=== PATIENT | male | born 1995 | race Caucasian/White ===

== ENCOUNTER 2019-10-05 12:58 | Inpatient (IN) | payer MEDICAID ==
[~2019-10-05] VITALS: Ht 166.4 cm; Wt 68.2 kg
[2019-10-05] MEDS ORDERED: ONDANSETRON HCL 4MG/2ML INJ IV STA (13:23)
[2019-10-05] MEDS ORDERED: MORPHINE SULFATE 4 MG/ML CPJ (NOT FOR IM USE) IV STA (13:23)
[2019-10-05] MEDS ORDERED: SODIUM CHLORIDE 0.9% 1000ML BAG (SEPSIS BOLUS) IV ONE (13:30)
[2019-10-05] MEDS ORDERED: LEVOFLOXACIN 750MG PREMIX 150 ML IV ONE (14:00)
[2019-10-05 14:09] LABS: CLARITY URINE CLEAR (CLEAR); COLOR URINE YELLOW (YELLOW); KETONES URINE NEGATIVE (NEGATIVE); LEUKOCYTE ESTERASE URINE 3+ (NEGATIVE); NITRITE URINE POSITIVE (NEGATIVE); OCCULT BLOOD URINE 1+ (NEGATIVE); PH URINE 7.5 (4.5-8.0); PROTEIN URINE NEGATIVE (NEGATIVE); SPECIFIC GRAVITY URINE 1.013 (1.005-1.030); UROBILINOGEN URINE 0.2 E.U./dL (0.2-1.0)
[2019-10-05 14:12] LABS: BASOPHILS % 0.3 % (0.0-2.0); EOSINOPHILS % 1.2 % (0.0-5.0); HEMATOCRIT. 44.4 % (42.0-52.0); HEMOGLOBIN. 14.6 g/dL (14.0-18.0); LYMPHOCYTES % 7.8 % (20.0-50.0); MEAN CORPUSCULAR HEMOGLOBIN 27.1 pg (28.0-32.0); MEAN CORPUSCULAR VOLUME 82.7 fL (80.0-94.0); MEAN PLATELET VOLUME 8.7 fl (7.4-10.4); MONOCYTES % 7.2 % (2.0-8.0); NEUTROPHILS % 83.5 % (40.0-76.0); PLATELET 263 x1000/uL (130-400); RED BLOOD CELL COUNT 5.38 mill/uL (4.7-6.1); RED CELL DISTRIBUTION WIDTH 15.6 % (11.6-14.6)
[2019-10-05 14:19] LABS: CHLORIDE 103 mEq/L (98-107); PROTHROMBIN TIME 9.9 sec (9.6-11.0)
[2019-10-05] MEDS ORDERED: HYDROCODONE/ACETAMINOPHEN 5/325MG TABLET PO PRN (17:30)
[2019-10-05] MEDS ORDERED: CLONIDINE 0.1MG TABLET PO PRN (17:30)
[2019-10-05] MEDS ORDERED: DOCUSATE SODIUM 100MG CAPSULE PO PRN (17:30)
[2019-10-05] MEDS ORDERED: IPRATROPIUM/ALBUTEROL 0.5-3(2.5)MG/3ML NEB NEB PRN (17:30)
[2019-10-05] MEDS ORDERED: MAGNESIUM/ALUMINUM HYDROXIDE/SIMETHICONE 30ML UDC PO PRN (17:30)
[2019-10-05] MEDS ORDERED: ACETAMINOPHEN 325MG TABLET PO PRN (17:30)
[2019-10-05] MEDS: SODIUM CHLORIDE 0.9% 1,000 ML IV SCH ×2 (17:30→22:53)
[2019-10-05] MEDS ORDERED: GUAIFENESIN 200MG/10ML SUGAR FREE UDC PO PRN (17:30)
[2019-10-05] MEDS ORDERED: ONDANSETRON HCL 4MG/2ML INJ IV PRN (17:30)
[2019-10-05] MEDS ORDERED: MORPHINE SULFATE 2 MG/ML CPJ (NOT FOR IM USE) IV PRN (17:30)
[2019-10-05 22:00] VITALS: BP 133/87
[2019-10-05] MEDS ORDERED: SERT50TA MT (22:09)
[2019-10-05] MEDS ORDERED: ALBU05 NEB ×2 (22:09)
[2019-10-05] MEDS ORDERED: ACET-2708 MT (22:09)
[2019-10-06] VITALS (13 sets, daily range): BP systolic 89–147; BP diastolic 55–94
[2019-10-06 06:18] LABS: BASOPHILS % 0.4 % (0.0-2.0); EOSINOPHILS % 3.4 % (0.0-5.0); HEMATOCRIT. 34.4 % (42.0-52.0); HEMOGLOBIN. 11.3 g/dL (14.0-18.0); LYMPHOCYTES % 18.5 % (20.0-50.0); MEAN CORPUSCULAR HEMOGLOBIN 27.3 pg (28.0-32.0); MEAN PLATELET VOLUME 9.3 fl (7.4-10.4); MONOCYTES % 8.1 % (2.0-8.0); NEUTROPHILS % 69.6 % (40.0-76.0); PLATELET 198 x1000/uL (130-400); RED BLOOD CELL COUNT 4.15 mill/uL (4.7-6.1); RED CELL DISTRIBUTION WIDTH 15.9 % (11.6-14.6)
[2019-10-06 06:30] LABS: CHLORIDE 107 mEq/L (98-107)
[2019-10-06] MEDS: ENOXAPARIN 40MG/0.4ML SYR SUBCUT SCH (09:21)
[2019-10-06] MEDS: FAMOTIDINE 20MG/2ML VIAL IV SCH (09:21)
[2019-10-06] MEDS: SODIUM CHLORIDE 0.9% 1,000 ML IV SCH (09:22)
[2019-10-06] MEDS ORDERED: LEVOFLOXACIN 500MG PREMIX 100 ML IV SCH (14:00)
[2019-10-06] MEDS: IPRATROPIUM/ALBUTEROL 0.5-3(2.5)MG/3ML NEB HHN SCH (20:06)
[2019-10-07] VITALS (12 sets, daily range): BP systolic 90–123; BP diastolic 60–81
[2019-10-07] MEDS: IPRATROPIUM/ALBUTEROL 0.5-3(2.5)MG/3ML NEB HHN SCH ×4 (02:08→20:34)
[2019-10-07 08:23] LABS: BG BASE EXCESS 2.5 mmol/L (-2.0-2.0); BG CARBOXYHEMOGLOBIN 0.3 % (0.5-1.5); BG DEOXYHEMOGLOBIN 0.8 % (0.0-5.0); BG FRACTION INSPIRED OXYGEN 35; BG HCO3 ACT 28.4 mmol/L (22.0-26.0); BG METHEMOGLOBIN 0.3 % (0.0-1.5); BG OXYGEN SATURATION 99.2 % (92.0-98.5); BG OXYHEMOGLOBIN 98.6 % (94.0-97.0); BG PCO2 49.4 mmHg (35.0-45.0); BG PH 7.377 (7.350-7.450); BG PO2 183.9 mmHg (75.0-100.0); BG SAMPLE SITE RIGHT RADIAL; BG TIDAL VOLUME(mL) 500 mL; BG TOTAL HEMOGLOBIN 11.6 g/dL (12.0-18.0); BG VENT MODE VENT - A/C; BG VENT RATE 12 set
[2019-10-07] MEDS: FAMOTIDINE 20MG/2ML VIAL IV SCH (08:56)
[2019-10-07] MEDS: ENOXAPARIN 40MG/0.4ML SYR SUBCUT SCH (08:56)
[2019-10-07] MEDS ORDERED: GENTAMICIN SULFATE 160 MG in SODIUM CHLORIDE 0.9% 100 ML IV SCH (13:00)
[2019-10-07] MEDS: SODIUM CHLORIDE 0.9% 1,000 ML IV SCH ×2 (13:59→23:35)
[2019-10-07] MEDS ORDERED: LEVOFLOXACIN 500MG PREMIX 100 ML IV SCH (14:00)
[2019-10-07] MEDS: GENTAMICIN 100MG PREMIX 50 ML IV SCH (23:35)
[2019-10-08] VITALS (12 sets, daily range): BP systolic 97–134; BP diastolic 72–88
[2019-10-08] MEDS: IPRATROPIUM/ALBUTEROL 0.5-3(2.5)MG/3ML NEB HHN SCH ×4 (02:04→21:00)
[2019-10-08] MEDS: GENTAMICIN 100MG PREMIX 50 ML IV SCH ×3 (05:25→21:13)
[2019-10-08 07:24] LABS: BASOPHILS % 0.4 % (0.0-2.0); EOSINOPHILS % 6.8 % (0.0-5.0); HEMATOCRIT. 33.4 % (42.0-52.0); HEMOGLOBIN. 11.1 g/dL (14.0-18.0); LYMPHOCYTES % 26.2 % (20.0-50.0); MEAN CORPUSCULAR HEMOGLOBIN 27.3 pg (28.0-32.0); MEAN PLATELET VOLUME 8.5 fl (7.4-10.4); MONOCYTES % 8.3 % (2.0-8.0); NEUTROPHILS % 58.3 % (40.0-76.0); PLATELET 188 x1000/uL (130-400); RED BLOOD CELL COUNT 4.07 mill/uL (4.7-6.1)
[2019-10-08 07:46] LABS: CHLORIDE 102 mEq/L (98-107)
[2019-10-08] MEDS: ENOXAPARIN 40MG/0.4ML SYR SUBCUT SCH (10:01)
[2019-10-08] MEDS: FAMOTIDINE 20MG/2ML VIAL IV SCH (10:01)
[2019-10-08] MEDS: SODIUM CHLORIDE 0.9% 1,000 ML IV SCH (12:41)
[2019-10-09] VITALS (12 sets, daily range): BP systolic 99–131; BP diastolic 62–85
[2019-10-09] MEDS: IPRATROPIUM/ALBUTEROL 0.5-3(2.5)MG/3ML NEB HHN SCH ×5 (00:30→19:55)
[2019-10-09] MEDS: SODIUM CHLORIDE 0.9% 1,000 ML IV SCH ×2 (04:23→15:04)
[2019-10-09] MEDS: GENTAMICIN 100MG PREMIX 50 ML IV SCH ×2 (05:46→18:18)
[2019-10-09] MEDS: ENOXAPARIN 40MG/0.4ML SYR SUBCUT SCH (08:30)
[2019-10-09] MEDS: FAMOTIDINE 20MG/2ML VIAL IV SCH (08:30)
[2019-10-10] VITALS (7 sets, daily range): BP systolic 98–131; BP diastolic 59–84
[2019-10-10] MEDS: IPRATROPIUM/ALBUTEROL 0.5-3(2.5)MG/3ML NEB HHN SCH ×3 (01:45→14:04)
[2019-10-10] MEDS: SODIUM CHLORIDE 0.9% 1,000 ML IV SCH (03:31)
[2019-10-10] MEDS: GENTAMICIN 100MG PREMIX 50 ML IV SCH (05:05)
[2019-10-10] MEDS: ENOXAPARIN 40MG/0.4ML SYR SUBCUT SCH (11:48)
[2019-10-10] MEDS: FAMOTIDINE 20MG/2ML VIAL IV SCH (11:48)
== END 2019-10-10 18:00 | disposition home or self-care (01) | DRG 720 ==
LOC: ER 12:58 → 5EST 15:21 → EDBEDREQTM 15:37 → ENRESERV 20:27
PROVIDERS: ADMIT Hospitalist; ATTEND Hospitalist
PROC: 5A1955Z Respiratory Ventilation, Greater than 96 Consecutive Hours (ICD-10-PCS; principal; 2019-10-05)
DX: A41.59 Other Gram-negative sepsis (principal); J96.20 Acute and chronic respiratory failure, unspecified whether with hypoxia or hypercapnia; Z99.11 Dependence on respirator [ventilator] status; N39.0 Urinary tract infection, site not specified; B96.4 Proteus (mirabilis) (morganii) as the cause of diseases classified elsewhere; R33.9 Retention of urine, unspecified; Z16.23 Resistance to quinolones and fluoroquinolones; Z93.0 Tracheostomy status; Z87.01 Personal history of pneumonia (recurrent); Z87.440 Personal history of urinary (tract) infections; Z88.0 Allergy status to penicillin
CPT/HCPCS: 36415; 36600; 51702; 71045; 74176; 80170; 81003; 82375; 82805; 83605; 84145; 84484; 87077; 87186; 93005; 93970; 94002; 94003; 94640; 96365; 96366; 99291; J1580; J1650; J1956; J2270; J2405; J3490; J7030; J7050; J7620

== ENCOUNTER 2024-08-18 06:17 | Inpatient (IN) | payer MEDICAID ==
[2024-08-18] VITALS (10 sets, daily range): PULSE 83–126; RESP 19–33; O2SAT 88–100
[~2024-08-18] VITALS: Ht 157.5 cm; Wt 93.4 kg
[~2024-08-18 06:17] MED LIST: ACET-2708 MT; ALBU05 NEB; SERT50TA MT
[2024-08-18 07:06] LABS: CHLORIDE 105 mEq/L (98-107); POTASSIUM 4.3 mEq/L (3.5-5.1); SODIUM 138 mEq/L (136-145)
[2024-08-18 07:07] LABS: CALCIUM 9.4 mg/dL (8.7-10.4); CARBON DIOXIDE 25 mEq/L (21-32)
[2024-08-18 07:11] LABS: PROTHROMBIN TIME 11.3 sec (9.6-11.0)
[2024-08-18 07:12] LABS: BASOPHILS % 0.3 % (0.0-2.0); CREATININE 0.6 mg/dL (0.6-1.3); GLUCOSE 113 mg/dL (70-105); HEMATOCRIT. 44.9 % (42.0-52.0); HEMOGLOBIN. 14.8 g/dL (14.0-18.0); LYMPHOCYTES % 20.5 % (20.0-50.0); MEAN CORPUSCULAR HEMOGLOBIN 27.9 pg (28.0-32.0); MEAN CORPUSCULAR VOLUME 84.8 fL (80.0-94.0); MEAN PLATELET VOLUME 7.8 fl (7.4-10.4); MONOCYTES % 6.2 % (2.0-8.0); PLATELET 348 x1000/uL (130-400); RED BLOOD CELL COUNT 5.29 mill/uL (4.7-6.1); RED CELL DISTRIBUTION WIDTH 14.1 % (11.6-14.6); UREA NITROGEN BLOOD 7 mg/dL (9-23); WHITE BLOOD COUNT 9.6 x1000/uL (4.5-11.0)
[2024-08-18 07:14] LABS: ALANINE AMINOTRANSFERASE 133 IU/L (10-49); ALBUMIN 4.7 g/dL (3.2-4.8); ASPARTATE AMINOTRANSFERASE 75 IU/L (<34); BILIRUBIN DIRECT 0.1 mg/dL (<=3.0); BILIRUBIN TOTAL 0.4 mg/dL (0.1-1.0); PROTEIN TOTAL 7.9 g/dL (6.0-8.3)
[2024-08-18 07:21] LABS: TROPONIN I HIGH SENSITIVITY < 4 ng/L (3.0-53)
[2024-08-18] MEDS: MEROPENEM 1G/100ML 100 ML IV ONE (07:39)
[2024-08-18] MEDS: SODIUM CHLORIDE 0.9% 1000ML BAG (SEPSIS BOLUS) IV ONE (07:40)
[2024-08-18] MEDS ORDERED: CLONIDINE 0.1MG TABLET PO PRN (08:45)
[2024-08-18] MEDS ORDERED: ONDANSETRON HCL 4MG/2ML INJ IV PRN (08:45)
[2024-08-18] MEDS ORDERED: DOCUSATE SODIUM 100MG CAPSULE PO PRN (08:45)
[2024-08-18] MEDS ORDERED: MAGNESIUM/ALUMINUM HYDROXIDE/SIMETHICONE 30ML UDC PO PRN (08:45)
[2024-08-18] MEDS ORDERED: IPRATROPIUM/ALBUTEROL 0.5-3(2.5)MG/3ML NEB HHN SCH (08:45)
[2024-08-18] MEDS ORDERED: GUAIFENESIN 200MG/10ML SUGAR FREE UDC PO PRN (08:45)
[2024-08-18] MEDS ORDERED: IPRATROPIUM/ALBUTEROL 0.5-3(2.5)MG/3ML NEB HHN PRN ×2 (08:45→09:15)
[2024-08-18] MEDS ORDERED: ACETAMINOPHEN 325MG TABLET PO PRN ×2 (08:45)
[2024-08-18] MEDS: IPRATROPIUM/ALBUTEROL 0.5-3(2.5)MG/3ML NEB HHN SCH (09:13)
[2024-08-18] MEDS: ENOXAPARIN 40MG/0.4ML SYR SUBCUT SCH (09:18)
[2024-08-18 09:51] LABS: CLARITY URINE CLEAR (CLEAR); COLOR URINE YELLOW (YELLOW); GLUCOSE URINE NEGATIVE (NEGATIVE); KETONES URINE NEGATIVE (NEGATIVE); LEUKOCYTE ESTERASE URINE 1+ (NEGATIVE); NITRITE URINE POSITIVE (NEGATIVE); OCCULT BLOOD URINE TRACE (NEGATIVE); PH URINE 5.5 (4.5-8.0); PROTEIN URINE NEGATIVE (NEGATIVE)
[2024-08-18] MEDS ORDERED: LEVO50TA8 PO (10:20)
[2024-08-18 10:50] LABS: BACTERIA URINE 1+; RBC URINE NONE SEEN /hpf (0-2); SQUAMOUS EPITHELIAL CELL URINE NONE SEEN /lpf (RARE/1+); YEAST URINE NONE SEEN
[2024-08-18] MEDS: AZITHROMYCIN 500MG/250ML 250 ML IV SCH (11:03)
[2024-08-18] MEDS: FAMOTIDINE 20MG/2ML VIAL IV SCH (11:03)
[2024-08-18] MEDS: VANCOMYCIN 1.5GM/250ML IV NR (12:14)
[2024-08-18 14:00] LABS: BG BASE EXCESS -1.7 mmol/L (-2.0-3.0); BG CARBOXYHEMOGLOBIN 0.5 % (0.5-1.5); BG DEOXYHEMOGLOBIN 3.2 % (0.0-5.0); BG FRACTION INSPIRED OXYGEN 40; BG HCO3 ACT 19.7 mmol/L (21.0-28.0); BG METHEMOGLOBIN 0.3 % (0.5-1.5); BG OXYGEN SATURATION 96.8 % (94.0-98.0); BG PCO2 25.6 mmHg (35.0-48.0); BG PH 7.504 (7.350-7.450); BG PO2 79.1 mmHg (83.0-108.0); BG SAMPLE SITE RIGHT RADIAL; BG TOTAL HEMOGLOBIN 14.6 g/dL (13.5-17.5); BG VENT MODE VENT - AC
[2024-08-18] MEDS: MEROPENEM 1G/100ML 100 ML IV SCH ×2 (14:58→23:01)
[2024-08-18] MEDS: SERTRALINE HCL 50MG TABLET PO SCH (15:26)
[2024-08-18] MEDS: QUETIAPINE FUMARATE 25MG TABLET PO SCH (17:20)
[2024-08-18] MEDS: VANCOMYCIN 750MG/150ML (BAXTER) IV SCH (17:40)
[2024-08-18] MEDS: ACETYLCYSTEINE 200MG/ML 20% VIAL 4ML INH SCH (20:17)
[2024-08-19] VITALS (21 sets, daily range): BP systolic 121–157; BP diastolic 74–102; PULSE 87–119; RESP 16–38; TEMP 36.50292–37.6968; O2SAT 99–100
[2024-08-19] MEDS: DEXAMETHASONE 10 MG/ML VIAL IV SCH (09:08)
[2024-08-19] MEDS: LEVOTHYROXINE SODIUM 50MCG TABLET PO SCH (09:09)
[2024-08-19 10:18] LABS: BG BASE EXCESS 1.6 mmol/L (-2.0-3.0); BG DEOXYHEMOGLOBIN 0.1 % (0.0-5.0); BG FRACTION INSPIRED OXYGEN 80; BG HCO3 ACT 26.5 mmol/L (21.0-28.0); BG METHEMOGLOBIN 0.2 % (0.5-1.5); BG OXYGEN SATURATION 99.9 % (94.0-98.0); BG OXYHEMOGLOBIN 99.7 % (94.0-98.0); BG PCO2 42.4 mmHg (35.0-48.0); BG PH 7.413 (7.350-7.450); BG PO2 319.3 mmHg (83.0-108.0); BG SAMPLE SITE RIGHT RADIAL; BG TOTAL HEMOGLOBIN 14.4 g/dL (13.5-17.5); BG VENT MODE VENT - P/C
[2024-08-19 10:39] LABS: HEMATOCRIT. 42.9 % (42.0-52.0); HEMOGLOBIN. 14.1 g/dL (14.0-18.0); MEAN CORPUSCULAR HEMOGLOBIN 28.1 pg (28.0-32.0); MEAN CORPUSCULAR HGB CONC 32.7 g/dL (31.0-37.0); MEAN CORPUSCULAR VOLUME 85.8 fL (80.0-94.0); MEAN PLATELET VOLUME 7.8 fl (7.4-10.4); PLATELET 315 x1000/uL (130-400); RED CELL DISTRIBUTION WIDTH 14.4 % (11.6-14.6); WHITE BLOOD COUNT 15.3 x1000/uL (4.5-11.0)
[2024-08-19 10:49] LABS: DIFFERENTIAL COMMENT 1
[2024-08-19 10:54] LABS: CHLORIDE 106 mEq/L (98-107); POTASSIUM 4.1 mEq/L (3.5-5.1)
[2024-08-19 10:55] LABS: CARBON DIOXIDE 24 mEq/L (21-32); SODIUM 137 mEq/L (136-145)
[2024-08-19 10:56] LABS: CALCIUM 9.5 mg/dL (8.7-10.4)
[2024-08-19 11:00] LABS: CREATININE 0.5 mg/dL (0.6-1.3); GLUCOSE 120 mg/dL (70-105)
[2024-08-19 11:01] LABS: LDL CHOLESTEROL 105 mg/dL (5-100); TRIGLYCERIDE 73 mg/dL (0-150)
[2024-08-19 11:02] LABS: ALBUMIN 4.4 g/dL (3.2-4.8)
[2024-08-19 11:03] LABS: CHOLESTEROL 155 mg/dL (<200); HDL CHOLESTEROL 47 mg/dL (>55)
[2024-08-19 11:07] LABS: THYROID STIMULATING HORMONE 0.58 uIU/mL (0.55-4.78); UREA NITROGEN BLOOD < 5 mg/dL (9-23)
[2024-08-19 13:10] LABS: T4 FREE 1.72 ng/dL (0.89-1.76)
[2024-08-19] MEDS ORDERED: VANCOMYCIN 750MG/150ML (BAXTER) IV SCH (14:00)
[2024-08-19 18:33] LABS: PLATELET ESTIMATE NORMAL
[2024-08-20] VITALS (24 sets, daily range): BP systolic 105–152; BP diastolic 57–118; PULSE 86–120; RESP 0–42; TEMP 36.114–36.9474; O2SAT 98–100
[2024-08-20 05:21] LABS: CHLORIDE 101 mEq/L (98-107); POTASSIUM 4.6 mEq/L (3.5-5.1); SODIUM 137 mEq/L (136-145)
[2024-08-20 05:22] LABS: CALCIUM 9.9 mg/dL (8.7-10.4); CARBON DIOXIDE 25 mEq/L (21-32)
[2024-08-20 05:27] LABS: CREATININE 0.6 mg/dL (0.6-1.3); GLUCOSE 109 mg/dL (70-105); UREA NITROGEN BLOOD 6 mg/dL (9-23)
[2024-08-20] MEDS: AZITHROMYCIN 500MG/250ML 250 ML IV SCH (13:06)
[2024-08-21] VITALS (24 sets, daily range): BP systolic 86–160; BP diastolic 55–97; PULSE 72–135; RESP 12–30; TEMP 36.114–37.66968; O2SAT 94–100
[2024-08-21] MEDS ORDERED: SODIUM CHLORIDE 0.9% 1,000 ML IV SCH (10:45)
[2024-08-21] MEDS ORDERED: SODIUM CHLORIDE 0.9% 1,000 ML IV NR (10:45)
[2024-08-21] MEDS: DEXT 5%/0.9% NACL 1,000 ML IV SCH (13:52)
[2024-08-21] MEDS: SODIUM CHLORIDE 0.9% 1,000 ML IV ONE (18:31)
[2024-08-21] MEDS: FAMOTIDINE 20MG/2ML VIAL IV SCH (20:34)
[2024-08-22] VITALS (23 sets, daily range): BP systolic 113–144; BP diastolic 74–90; PULSE 87–120; RESP 2–26; TEMP 36.89184–37.28076; O2SAT 93–100
[2024-08-22 05:55] LABS: EOSINOPHILS % 0.1 % (0.0-5.0); HEMATOCRIT. 40.8 % (42.0-52.0); HEMOGLOBIN. 13.2 g/dL (14.0-18.0); LYMPHOCYTES % 12.8 % (20.0-50.0); MEAN CORPUSCULAR HEMOGLOBIN 27.5 pg (28.0-32.0); MEAN CORPUSCULAR HGB CONC 32.4 g/dL (31.0-37.0); MEAN CORPUSCULAR VOLUME 84.7 fL (80.0-94.0); MEAN PLATELET VOLUME 8.2 fl (7.4-10.4); MONOCYTES % 11.8 % (2.0-8.0); NEUTROPHILS % 75.3 % (40.0-76.0); PLATELET 320 x1000/uL (130-400); RED BLOOD CELL COUNT 4.82 mill/uL (4.7-6.1); RED CELL DISTRIBUTION WIDTH 13.7 % (11.6-14.6); WHITE BLOOD COUNT 10.4 x1000/uL (4.5-11.0)
[2024-08-22] MEDS: LEVOFLOXACIN 250MG TABLET PO SCH (20:50)
[2024-08-23] VITALS (20 sets, daily range): BP systolic 97–165; BP diastolic 62–98; PULSE 77–111; RESP 20–30; TEMP 36.61404–37.28076; O2SAT 94–100
[2024-08-23 05:58] LABS: CHLORIDE 102 mEq/L (98-107); POTASSIUM 4.2 mEq/L (3.5-5.1); SODIUM 139 mEq/L (136-145)
[2024-08-23 05:59] LABS: CARBON DIOXIDE 29 mEq/L (21-32)
[2024-08-23 06:04] LABS: CREATININE 0.5 mg/dL (0.6-1.3); GLUCOSE 87 mg/dL (70-105); UREA NITROGEN BLOOD 7 mg/dL (9-23)
[2024-08-23 08:54] LABS: MEAN CORPUSCULAR HEMOGLOBIN 27.9 pg (28.0-32.0); MEAN CORPUSCULAR HGB CONC 32.1 g/dL (31.0-37.0); MEAN CORPUSCULAR VOLUME 87.2 fL (80.0-94.0); MEAN PLATELET VOLUME 8.4 fl (7.4-10.4); PLATELET 272 x1000/uL (130-400); RED BLOOD CELL COUNT 5.74 mill/uL (4.7-6.1); RED CELL DISTRIBUTION WIDTH 14.3 % (11.6-14.6); WHITE BLOOD COUNT 8.2 x1000/uL (4.5-11.0)
[2024-08-23 09:04] LABS: DIFFERENTIAL COMMENT 1
[2024-08-23 20:11] LABS: PLATELET ESTIMATE NORMAL
[2024-08-24] VITALS (15 sets, daily range): BP systolic 112–167; BP diastolic 81–102; PULSE 82–106; RESP 16–23; TEMP 36.61404–37.16964; O2SAT 97–100
== END 2024-08-24 20:12 | disposition home or self-care (01) | DRG 720 ==
LOC: ER 06:17 → EDBEDREQTM 07:38 → EDBEDREQSVC 07:38 → EDBEDREQ 07:38 → 5EST 08-19 05:29
PROVIDERS: ADMIT Hospitalist; ATTEND Hospitalist
PROC: 5A1955Z Respiratory Ventilation, Greater than 96 Consecutive Hours (ICD-10-PCS; principal; 2024-08-19)
DX: A41.52 Sepsis due to Pseudomonas (principal); J96.21 Acute and chronic respiratory failure with hypoxia; J12.82 Pneumonia due to coronavirus disease 2019; J95.851 Ventilator associated pneumonia; U07.1 COVID-19; Z93.0 Tracheostomy status; Z99.11 Dependence on respirator [ventilator] status; I95.9 Hypotension, unspecified; E03.9 Hypothyroidism, unspecified; F32.A Depression, unspecified; J45.909 Unspecified asthma, uncomplicated; I10 Essential (primary) hypertension; F41.9 Anxiety disorder, unspecified; N39.0 Urinary tract infection, site not specified; Q07.00 Arnold-Chiari syndrome without spina bifida or hydrocephalus; Z93.1 Gastrostomy status; Z87.440 Personal history of urinary (tract) infections; Z87.01 Personal history of pneumonia (recurrent); Z78.9 Other specified health status; Z74.01 Bed confinement status; Z79.890 Hormone replacement therapy; Z88.0 Allergy status to penicillin; Y84.8 Other medical procedures as the cause of abnormal reaction of the patient, or of later complication, without mention of misadventure at the time of the procedure
CPT/HCPCS: 36415; 36600; 71045; 80048; 80061; 80076; 80202; 81003; 82040; 82375; 82805; 83605; 83735; 84145; 84439; 84443; 84484; 85025; 85379; 87070; 87077; 87186; 87426; 87804; 92610; 93005; 93970; 94003; 94640; 99291; J0456; J1100; J1650; J2185; J3370; J3490; J7030; J7042; J7608